=== PATIENT | male | born 1935 | race Caucasian/White ===

== ENCOUNTER → 2017-07-27 | Outpatient (CLI) | payer SELFPAY ==
--- NOTE | 2017-07-27 12:35 | RAD ---
Exam performed: 2 views of the chest. Indication: MALIGNANT NEOPLASM OF RT KIDNEY, EXCEPT RENAL PELVIS Date of Service:07/27/2017 2:00 AM . Comparison : None available. Findings: Study somewhat limited due to positioning with patient's chin overlying the lung apices. PA and lateral radiographs of the chest reveal a borderline enlarged cardiomediastinal contour. Atheromatous calcification of the aortic knob. The lungs are essentially clear. No pleural fluid is seen. Total right shoulder arthroplasty. Impression: Borderline cardiomegaly, otherwise unremarkable exam.
== END | disposition home or self-care (01) ==
LOC: DXRADRC 11:53
PROVIDERS: ATTEND Urology
DX: C64.1 Malignant neoplasm of right kidney, except renal pelvis (principal); I70.0 Atherosclerosis of aorta; Z96.611 Presence of right artificial shoulder joint
CPT/HCPCS: 71020

== ENCOUNTER → 2017-11-02 | Outpatient (CLI) | payer MEDICARE ==
[2017-11-02 08:52] LABS: HEMOGLOBIN 13.7 g/dL (13.0-17.5)
[2017-11-02 08:58] LABS: ALBUMIN 3.9 g/dL (3.4-5.0); CALCIUM 10.5 mg/dL (8.5-10.1); CREATININE 1.6 mg/dL (0.7-1.3); GFR 41.6; POTASSIUM 4.3 mmol/L (3.5-5.1)
[2017-11-02 09:01] LABS: MAGNESIUM 1.7 mg/dL (1.8-2.4)
[2017-11-02 09:03] LABS: BILIRUBIN,URINE NEG (NEG); CLARITY,URINE CLEAR; COLOR,URINE YELLOW; GLUCOSE,URINE NEG (NEG)
[2017-11-02 09:04] LABS: BACTERIA,URINE 0 /HPF (0-FEW); NITRITE,URINE NEG (NEG); SQUAMOUS EPITHELIAL CELL,UR OCC /LPF; UROBILINOGEN,URINE 0.2 mg/dL (0.2 mg/dL); WBC,URINE OCC /HPF (0-4)
[2017-11-02 21:09] LABS: MICRO CREAT RATIO 147.9 mg/g creat (0.0-30.0); MICROALB RD UR 35.8 ug/mL (Not Estab.)
[2017-11-02 22:07] LABS: PROTEIN RANDOM URINE 7.6 mg/dL (Not Estab.)
== END | disposition home or self-care (01) ==
LOC: LAB 08:11
PROVIDERS: ATTEND Internal Medicine Nephrology
DX: I12.9 Hypertensive chronic kidney disease with stage 1 through stage 4 chronic kidney disease, or unspecified chronic kidney disease (principal); N18.3 Chronic kidney disease, stage 3 (moderate); N28.1 Cyst of kidney, acquired; N11.9 Chronic tubulo-interstitial nephritis, unspecified; R80.8 Other proteinuria; Z68.30 Body mass index [BMI] 30.0-30.9, adult; Z90.5 Acquired absence of kidney
CPT/HCPCS: 36415; 80069; 81001; 82043; 82570; 83735; 84156; 85014; 85018